=== PATIENT | male | born 1965 | race Two or more races ===

== ENCOUNTER → 2016-10-08 | Outpatient (CLI) | payer OTHER ==
--- NOTE | ~2016-10-08 | CR114 ---
[facility] A Service of [facility] RADIOLOGY TEXT RESULTS PATIENT: DURGA CHEATHAM LOCATION: [facility] : 61 UNIT #: [id number] AGE: [address]: RODNEY FERNANDO APRN SEX: M ORDER DR: [id number] [facility] [address] [facility] [place], [place] [address] [id number] O MR#: [id number] Acc #: [id number] NAME: DURGA CHEATHAM : 1965 SEX: M STUDY DATE/TIME: 10/08/2016 11:25 UNIT: [facility] ROOM: STUDY DESCRIPTION: CR Finger 2 View 5Th Lt Attending Physician: Rodney Fernando Referring Physician: Rodney Fernando Ordering Physician: Lianet Fernando M.D. Primary Care Physician: Cyrus Dunn M.D. MEDICAL IMAGING REPORT This report is preliminary unless electronic signature is present EXAM Left fifth digit series, 10/08/2016 INDICATION Swelling and pain after trauma. Twisting injury with a dog leash 3 months ago. Small knot at the middle portion of the fifth finger. TECHNIQUE 3 views of the left fifth digit. No comparison. FINDINGS The area of palpable concern is at the level of the PIP joint. There is no evidence of acute or chronic fracture. No retained opaque foreign body. IMPRESSION Negative. Dictated by... Leland Kulkarni M.D. THIS IS AN ELECTRONICALLY VERIFIED REPORT Leland Kulkarni M.D. at 10/09/2016 9:17 AM Héctor TD: 10/08/2016 23:56 JOB #: [id number] MEDICAL IMAGING REPORT Page 1 of 1 COPY
== END | disposition home or self-care (01) ==
LOC: CRAD 11:12
DX: M79.89 Other specified soft tissue disorders (principal); M79.645 Pain in left finger(s)
CPT/HCPCS: 73140